=== PATIENT | female | born 1965 | race Two or more races ===

== ENCOUNTER 2021-10-29 09:57 | Emergency (ER) | payer OTHER ==
[~2021-10-29] VITALS: Ht 157.5 cm; Wt 81.6 kg
[2021-10-29] MEDS ORDERED: METOPROLOL SUCC25 MG PO (10:09)
[2021-10-29] MEDS ORDERED: ALBUTEROL2.5 MG/3 M IH (10:10)
== END 2021-10-29 13:27 ==
LOC: ER 09:57
DX: M79.672 Pain in left foot (principal); M72.9 Fibroblastic disorder, unspecified; I10 Essential (primary) hypertension

== ENCOUNTER 2022-03-13 13:15 | Emergency (ER) | payer OTHER ==
[~2022-03-13] VITALS: Ht 154.9 cm; Wt 80.7 kg
[~2022-03-13 13:15] MED LIST: ALBUTEROL2.5 MG/3 M IH; METOPROLOL SUCC25 MG PO
== END 2022-03-13 17:11 | disposition home or self-care (01) ==
LOC: ER 13:15
DX: M75.32 Calcific tendinitis of left shoulder (principal); Z91.018 Allergy to other foods; I10 Essential (primary) hypertension